=== PATIENT | female | born 1940 ===

== ENCOUNTER 2025-02-03 01:12 | Outpatient (CLI) | payer OTHER, SELFPAY ==
--- NOTE | 2025-02-03 | DI.MRI_ITS ---
Exam(s) MR ABDOMEN WO/W EXAM: MR ABDOMEN WO/W CLINICAL HISTORY: Liver lesion lt lobe K76.9 additnl scattered r lobe subcm hypodensities TECHNIQUE: Multiplanar multisequence MRI of the Abdomen was performed. CONTRAST MATERIAL: IV Contrast: 13 mL of Dotarem contrast administered. COMPARISON: CT CT RAD ONC CHEST INTER from 12/17/2024 FINDINGS: Lung bases: Unremarkable. Liver: Normal size. Leads in question on treatment planning CT corresponds to a 7 millimeter simple cyst. There is an additional 8 millimeter cyst superiorly in the left lobe and a few other scattered tiny, less than 5 millimeter cysts. No suspicious lesions. Pancreas: Unremarkable. Gallbladder and Bile Ducts: Unremarkable. Adrenals: Unremarkable. Kidneys: Unremarkable. Spleen: Unremarkable. Aorta: Unremarkable. Soft Tissues: Some left breast architectural distortion and edema consistent with postsurgical changes. Bone: Unremarkable. Lymph Nodes: Unremarkable. Stomach and bowel: Unremarkable. Peritoneal cavity: Unremarkable. No evidence of ascites. IMPRESSION: Small simple cysts are noted in the liver. No suspicious lesions. No follow-up recommended. DATA REPOSITORY:
[2025-02-03] MEDS: Normal Saline - Diluent 50 ML VIAL 25 ML IJ (10:17)
[2025-02-03] MEDS: Gadoterate meglumine 20 ML VIAL 13 ML IVP (10:18)
== END 2025-02-03 01:32 ==
PROVIDERS: PCP Physician Assistant; Visit Provider Radiology Radiation Oncology
DX: K76.9 Liver disease, unspecified (principal)
CPT/HCPCS: 74183

== ENCOUNTER 2025-05-26 02:18 | Outpatient (CLI) | payer OTHER, SELFPAY ==
--- NOTE | 2025-05-26 | DI.CT_ITS ---
Exam(s) CT CHEST W EXAM: CT CHEST W CLINICAL HISTORY: LUNG NODULE R91.1 S/P XRT L BREAST CA 6MM RUL PULM NODULE ON CT SIM AT [facility] TECHNIQUE: Imaging Protocol: Axial computed tomography images with coronal and sagittal reformatted images were created and reviewed. Computer aided detection (CAD) was utilized. CONTRAST MATERIAL: Intravenous: Omnipaque 350Contrast volume:70 mL. COMPARISON: CT CT RAD ONC CHEST INTER from 12/17/2024 FINDINGS: Tracheobronchial tree: Patent where visualized. No evidence of bronchiectasis. Pulmonary parenchyma: There is a stable 5-6 mm nodule in the periphery of the right upper lobe (series 8, image 25). There is again seen a calcified granuloma in the right lower lobe (series 8, image 113). There is a new subpleural infiltrate in the left upper lobe which may reflect radiation therapy changes. There are no other pulmonary infiltrates present. Mediastinum and Kika: No dominant adenopathy or fluid collection. The esophagus is unremarkable. Thyroid gland: There is a less than 1 cm nodule in the inferior pole of the left lobe of the thyroid gland. No follow-up is recommended. Pleura: No effusion or pneumothorax. Heart: The heart is not dilated. Mild coronary artery calcification is present. No pericardial effusion. Aorta: Thoracic aorta non-dilated. Atherosclerotic calcification is present. Pulmonary arteries: No pulmonary emboli are identified. Upper abdomen: There is a simple cyst on the left kidney. No follow-up is recommended. Lymph nodes: Within normal limits. Bones: Within normal limits for the patient's age. Soft tissues: There is skin thickening over the left breast which may be secondary to radiation therapy. IMPRESSION: 1. Stable 6 mm right upper lobe pulmonary nodule. There are no new pulmonary nodules. For solitary solid noncalcified nodules measuring 6???8 mm in patients at high risk, an initial follow-up examination is recommended at 6???12 months and again at 18???24 months (grade 1B: strong recommendation, moderate quality evidence). (Sean et al., 2017) Solitary noncalcified solid nodules measuring 6???8 mm in patients with low clinical risk are recommended to undergo initial follow-up at 6???12 months depending on size, morphology, and patient preference (grade 1C: strong recommendation, low- or [id number] evidence). (Sean et al., 2017) 2. New peripheral infiltrate in the left upper lobe. This may be post therapeutic radiation changes. Pneumonia cannot be excluded. Please correlate clinically. 3. Skin thickening of the left breast which may be secondary to radiation therapy. RADIATION DOSE DELIVERED: 101.64mGy.cm Total DLP DATA REPOSITORY: All CT scans at this facility are submitted to the National Radiology Data Registry (NRDR) Dose Index Registry (DIR) with the [employer] ([employer]). RADIATION OPTIMIZATION: All CT scans at this facility use at least one of these dose optimization techniques: automated exposure control; mA and/or kV adjustment per patient size (includes targeted exams where dose is matched to clinical indication); or iterative reconstruction.
[2025-05-26 09:37] LABS: Estimated GFR 73.52 (mL/min/1.73m2)
[2025-05-26] MEDS: Normal Saline Flush 10 ML SYR IVP (09:51)
[2025-05-26] MEDS: Normal Saline - Diluent 50 ML VIAL IJ (09:51)
[2025-05-26] MEDS: Omnipaque 350 MG/ML 500 ML BTL-Imaging package IJ (09:53)
== END 2025-05-26 02:38 ==
LOC: DI 02:21
PROVIDERS: PCP Physician Assistant; Visit Provider Radiology Radiation Oncology
DX: R91.1 Solitary pulmonary nodule (principal)
CPT/HCPCS: 71260; 82565